=== PATIENT | female | born 1985 | race Caucasian/White ===

== ENCOUNTER → 2018-06-02 12:43 | Outpatient (CLI) | payer OTHER, SELFPAY ==
[2018-06-02 13:35] LABS: Add Manual Diff / Slide Review NO; Basophils Absolute Auto 100 /uL (0-100); Basophils Percent Auto 1.1 % (0-2); Eosinophils Absolute Auto 200 /uL (0-450); Eosinophils Percent Auto 2.3 % (2-4); Hematocrit 41.7 % (36-46); Hemoglobin 14.3 g/dL (12.0-16.0); Lymphocytes Absolute Auto 2300 /uL (1100-4500); Lymphocytes Percent Auto 35.5 % (25-40); Mean Corpuscular HGB Conc 34.2 % (30-36); Mean Corpuscular Volume 93.6 fL (80-100); Monocytes Absolute Auto 300 /uL (0-900); Monocytes Percent Auto 5.3 % (3-14); Neutrophils Absolute Auto 3700 /uL (1500-7000); Neutrophils Percent Auto 55.8 % (50-75); Platelet Count 146 X10^3/uL (150-400); Red Blood Cell Count 4.46 X10^6/uL (4.0-5.2); Red Cell Distribution Width 13.3 % (11.6-14.8); White Blood Cell Count 6.6 X10^3/uL (4.5-11.0)
[2018-06-02 13:55] LABS: HEMOLYSIS < 15 (0-50)
[2018-06-02 13:56] LABS: BUN Creatinine Ratio 27.1 (6-22); Blood Urea Nitrogen 19 mg/dL (7-17); Carbon Dioxide 23 mmol/L (22-32); Chloride 106 mmol/L (98-107); Estimated Glomerular Filt Rate > 60.0 mL/min (>60); Glucose 84 mg/dL (70-100); Sodium 138 mmol/L (137-145)
== END ==
PROVIDERS: PCP Family Medicine; Visit Provider Orthopaedic Surgery Orthopaedic Surgery of the Spine
DX: Z01.818 Encounter for other preprocedural examination (principal)
CPT/HCPCS: 36415; 80048; 85025

== ENCOUNTER 2018-07-14 14:08 | Day surgery (SDC) | payer OTHER, SELFPAY ==
[2018-07-03 08:17] VITALS: BMI 23.8
[2018-07-14] VITALS (11 sets, daily range): BP systolic 96–121; BP diastolic 60–80; PULSE 67–92; RESP 11–17; TEMP 35.8–36.8; O2SAT 97–100; BMI 23.8
[2018-07-14] MEDS: LACTATED RINGERS 1,000 ML 42 ML IV ×2 (14:54→17:32)
--- NOTE | 2018-07-14 15:37 | PM.PREOP ---
Pre-operative Note Interval Note History & Physical reviewed/Exam performed by Physician: Yes Changes to H&P: No
[2018-07-14] MEDS: CLINDAMYCIN 600 MG/50 ML PIGGYBACK 50 MG IV (15:40)
--- NOTE | 2018-07-14 16:36 | SUR.OPER ---
Prone on spine table, head in foam head support, padded chest and pelvic supports, gel pad at knees, lower legs supported by pillows; nipples, genitalia and toes free of pressure, arms secured on foam padded arm boards at <90 degrees abduction. Tape over blanket at thigh secured to table.
--- NOTE | 2018-07-14 16:40 | DI.RAD.S_ITS ---
PROCEDURE: XR THORACIC SPINE 3V INDICATIONS: T7-8 ,HEMILAMINECTOMY TECHNIQUE: 2 views of the thoracic spine were acquired. COMPARISON: [facility] ALAN Angulo, XR THORACIC SPINE 2 VIEWS, 02/20/2018, 15:04. FINDINGS: Surgical probe projected over the posterior spinal elements at the presumed T7-T8 level, however the inferior thoracic spine is not clearly visualized so exact numbering is not possible. IMPRESSION: 1. Surgical probe projecting over the posterior elements at the presumed T7-T8 level. Recommend correlation with real-time exam. Dictated by: Tim ALFONSO Interpreted: Darlene Cheney MD on 07/14/2018 at 17:02 Approved by: Darlene Cheney M.D. on 07/14/2018 at 17:19
[2018-07-14] MEDS: BUPIVACAINE 0.25% W/ EPI 30 ML VIAL INJ (16:43)
[2018-07-14] MEDS: methylPREDNISolone acet DEPO 40 MG/ML VIAL INJ (16:43)
--- NOTE | 2018-07-14 16:59 | PM.OP.1 ---
Operative Date/Time/Diagnoses Date of procedure: 07/14/18 Time of procedure: 16:00 Pre-op diagnosis: 1. T7-8 spinal stenosis 2. T7-8 disc herniation Post-op diagnosis: same Procedure & Clinicians Procedure: 1. T7-8 microdiscectomy with laminectomy 2. Utilization of microsurgical technique and operating microscope Same procedure as scheduled: Yes Indications: Patient has been having chronic mid back pain and worsening thoracic radiculopathy. Patient failed multiple conservative management with worsening pain. Patient has been having difficulty performing activity of daily living. After discussing risks benefits of treatment options, patient elected proceed with surgery. Surgeon: Rober Fried Technician Assistant: Ronna Merchant Click Yes if Unassisted: No Anesthesia Type: General Operative Notes Closure Type: primary Specimen(s): none sent Estimated Blood Loss (mL): 5 Blood products transfused: none Procedure in detail: Patient was seen in the preoperative area. Risks and benefits of the surgery was discussed with the patient. Informed consent was obtained from the patient and placed in the chart. Surgical site was marked. Patient was taken to the operative room. General anesthesia was administered. Prophylactic antibiotic was given to the patient less than 30 min before the incision was made. Patient was placed into a prone position on the Arturo table. Patient's back was then prepped and draped in the sterile fashion. Time-out was performed at this time. Using AP and lateral C-arm imaging the interval between T7-8 was identified and marked on patient's back. A 1 inch incision 1 in from midline was made on the Left side. The fascia was incised in line with skin incision. Globus MARS retractors was placed inside the incision and docked onto the T7 lamina. Using microsurgical technique and operating microscope, a T7 laminotomy was performed using a Kerrison rongeur. Liagamentum flavum was resected at the site of the laminotomy. After the laminotomy and ligamentus resection, the epidural space is significantly more decompressed. After the laminotomy was completed, the area medial lateral superior and inferior to the area of the microdiskectomy was inspected and explored using a micro curette. No other impinging structure was identified. The wound was then irrigated with sterile normal saline. 40 mg Depo-Medrol was placed into the epidural space. The deep fascia was closed with 1-0 Vicryl. The subcutaneous tissue was closed with 2-0 Vicryl. The skin was closed with 4-0 Monocryl. Patient tolerated the procedure well. There were no complications. Patient was transferred recovery room in stable condition. Complications: none Condition: stable Disposition: same day surgery Plan for aftercare: Discharge to home
[2018-07-14] MEDS: fentaNYL 100 MCG/2 ML INJ 50 MCG IV ×2 (17:12→17:18)
[2018-07-14] MEDS: HYDROMORPHONE 2 MG INJ 0.5 MG IV ×4 (17:28→18:42)
[2018-07-14] MEDS: hydrOXYzine 50 MG/ML INJ IM (17:47)
[2018-07-14] MEDS: OXYCODONE/ACETAMINOPHEN 5/325 TABLET 1 TAB PO (18:26)
== END 2018-07-14 19:22 | disposition home or self-care (01) ==
PROVIDERS: PCP Family Medicine; Visit Provider Orthopaedic Surgery Orthopaedic Surgery of the Spine
PROC: (CPT 63003; principal; 2018-07-14 15:45)
DX: M48.04 Spinal stenosis, thoracic region (principal); M51.24 Other intervertebral disc displacement, thoracic region; Z87.891 Personal history of nicotine dependence
CPT/HCPCS: 63003; 72072; 76000; J1030; J1100; J1170; J2250; J2405; J2704; J3010; J3410

== ENCOUNTER → 2019-08-21 17:15 | Outpatient (ROUT) | payer OTHER, SELFPAY | PROVIDERS: PCP Family Medicine; Visit Provider Student in an Organized Health Care Education/Training Program | DX: N61.0 Mastitis without abscess (principal) | CPT/HCPCS: 87070; 87075; 87205 ==

== ENCOUNTER → 2019-08-26 09:56 | Outpatient (CLI) | payer OTHER, SELFPAY ==
--- NOTE | 2019-08-26 | DI.MG.S_ITS ---
BILATERAL DIGITAL DIAGNOSTIC MAMMOGRAM 3D/2D: 08/26/2019 CLINICAL: Baseline exam. Bilateral nipple discharge. No prior exams were available for comparison. The tissue of both breasts is heterogeneously dense. This may lower the sensitivity of mammography. No significant masses, calcifications, or other findings are seen in either breast. IMPRESSION: INCOMPLETE: NEEDS ADDITIONAL IMAGING EVALUATION There is no abnormality seen in either breast to correspond with the area of clinical concern and non-bloody discharge from the nipple, however, ultrasound is recommended. There is no abnormality seen in the right breast to correspond with the area of clinical concern and palpable abnormality in the inferior aspect, however, ultrasound is recommended. The recommended bilateral breast ultrasound is scheduled to immediately follow this examination. This exam was interpreted at Station ID: [id number]. NOTE: For mammograms, a report in lay terms will be sent to the patient. Approximately 15% of breast malignancies will not be visualized mammographically. In the management of a palpable breast mass, a negative mammogram must not discourage biopsy of a clinically suspicious lesion. Electronically Signed By: Elias Cabrera M.D. aty/:08/26/2019 12:02:11 ACR BI-RADS Category 0: Incomplete [id number]
--- NOTE | 2019-08-26 | DI.US.S_ITS ---
ULTRASOUND OF RIGHT BREAST: 08/26/2019 CLINICAL: Nipple discharge md palp lump. Comparison is made to exam dated: 08/26/2019 [facility]. Real-time ultrasound of the right breast was performed. Patino scale images of the real-time examination were reviewed. No significant abnormalities were seen sonographically in the right breast. IMPRESSION: NEGATIVE There is no sonographic evidence of malignancy. There is no abnormality seen in the right breast to correspond with the area of clinical concern and non-bloody discharge from the nipple which likely represents physiological discharge, however, clinical followup is recommended for persistent or worsening symptoms. A screening mammogram is recommended at age 40. This exam was interpreted at Station ID: [id number]. Electronically Signed By: Elias Cabrera M.D. aty/:08/26/2019 12:18:52 Ultrasound BI-RADS: 1 Negative
--- NOTE | 2019-08-26 | DI.US.S_ITS ---
ULTRASOUND OF LEFT BREAST: 08/26/2019 CLINICAL: Nipple discharge. Comparison is made to exam dated: 08/26/2019 [facility]. Real-time ultrasound of the left breast was performed. Patino scale images of the real-time examination were reviewed. No significant abnormalities were seen sonographically in the left breast. IMPRESSION: NEGATIVE There is no sonographic evidence of malignancy. There is no abnormality seen in the left breast to correspond with the area of clinical concern and non-bloody discharge from the nipple in the sub-areolar depth which likely represent physiological discharge, however, recommend clinical follow up for persistent or worsening symptoms or development of any clinically suspicious findings. A screening mammogram is recommended at age 40. This exam was interpreted at Station ID: [id number]. Electronically Signed By: Elias Cabrera M.D. aty/:08/26/2019 12:29:16 Ultrasound BI-RADS: 1 Negative
== END ==
PROVIDERS: PCP Family Medicine; Referring Provider Family Medicine; Visit Provider Family Medicine
DX: R92.8 Other abnormal and inconclusive findings on diagnostic imaging of breast (principal); N64.52 Nipple discharge
CPT/HCPCS: 76642; 77066; G0279

== ENCOUNTER → 2020-04-08 11:10 | Outpatient (CLI) | payer OTHER, SELFPAY ==
[2020-04-08 11:55] LABS: COVID19 -Nasal RAPID POSITIVE (Negative)
== END ==
PROVIDERS: PCP Family Medicine; Referring Provider Student in an Organized Health Care Education/Training Program; Visit Provider Student in an Organized Health Care Education/Training Program
DX: U07.1 COVID-19 (principal)
CPT/HCPCS: 87635

== ENCOUNTER 2020-11-12 09:50 | Emergency (ER) | payer SELFPAY ==
[2020-11-12 09:54] VITALS: BP 137/84; PULSE 82; RESP 14; TEMP 36.7; O2SAT 100; BMI 24.3
--- NOTE | 2020-11-12 10:00 | ED_ITS ---
HPI - Ear Problem General Chief complaint: Ear Stated complaint: EAR PAIN Time Seen by Provider: 11/12/20 09:58 History of Present Illness HPI Narrative: The patient is a 35-year-old female presents with persistent ongoing severe right ear pain. She has left ear pain as well but the right is significantly worse. She initially was seen 10/17/2020 at the walk-in clinic diagnosed with otitis media and otitis externa. At that time she reports swimming in the [place] frequently. Due to severe anaphylactic penicillin allergy she was placed on doxycycline and given ofloxacin drops. She reports some improvement at that time. However she was re-evaluated on 10/27/2020 with loss of hearing in her right ear. She has some intermittent for to being dizzy as well. She was evaluated by ENT on October 28 him she was not happy with and does not feel like they helped her at all. She then got on an airplane free to [place] on October 30. She states she did not get in the water at all she flew home 4 days ago and had intense right ear pain on the airplane. She has since restarted her drops which she has been using as directed. She was seen evaluated and for 3rd time at the walk-in clinic on November 10 and restarted on doxycycline. She states she overall is not feeling any better. She continues to have gross drainage from her right ear. It is severely tender to touch. She takes ibuprofen 800 mg every 8 hours she has been taking Tylenol 1000 mg every 6 hours last dose was at 6:00 a.m. of each of these she continues to have pain. Related Data Home Medications Medication Instructions Recorded Confirmed Multivitamins - 1 tab PO Q DAY #0 02/27/10 11/10/20 (-S) Previous Rx's Medication Instructions Recorded azithromycin 250 mg tablet See Rx Instructions PO .COMPLEX #6 04/08/20 tab ofloxacin 0.3 % ear drops 10 drp OTIC (EAR) BID #10 ml 10/17/20 doxycycline hyclate 100 mg capsule 100 mg PO BID 10 Days #20 cap 11/10/20 ciprofloxacin 0.3 %-dexamethasone 4 drp EAR-BOTH BID 10 Days #7.5 ml 11/12/20 0.1 % ear drops,suspension clarithromycin 500 mg tablet 500 mg PO Q12H #20 tab 11/12/20 levofloxacin 750 mg tablet 750 mg PO DAILY 7 Days tab 11/12/20 ofloxacin 0.3 % ear drops 10 drp EAR-RIGHT DAILY 10 Days #10 11/12/20 ml Allergies Allergy/AdvReac Type Severity Reaction Status Date / Time Penicillins Allergy Severe Anaphylaxis Verified 11/12/20 09:58 latex Allergy Intermediate SWELLING Verified 11/12/20 09:58 hydrocodone Allergy Unknown Verified 11/12/20 09:58 Review of Systems Review of Systems Narrative: GENERAL: Denies chills, fatigue, malaise, fever, sweats, travel HEENT: See HPI RESPIRATORY: Denies dyspnea, cough, wheezing, hemoptysis, sputum. CARDIOVASCULAR: Denies chest pain, palpitations, orthopnea, edema GASTROINTESTINAL: Denies nausea, vomiting, abdominal pain, diarrhea, cons tipation, melena. : Denies dysuria, frequency, incontinence, hematuria, urinary retention, flank pain. MUSCULOSKELETAL: Denies weakness, joint pain, or bony pain SKIN: No rash, no erythema, no pruritus NEUROLOGIC: +dizzy Denies weakness,headache, numbness, change in speech, confusion PSYCHIATRIC: No concerning psychosocial issues. 12 point review of systems is negative except for those stated above and HPI Patient History Medical History (Updated 11/12/20 @ 18:57 by Odalis Brower DO) Bilateral otitis media Bone spur Right otitis externa Thoracic spinal stenosis Social History household members: spouse and children Smoking Status: Current every day smoker alcohol intake: current Smoking Status: Current every day smoker alcohol intake frequency: holidays/special occasions only Exam Initial Vital Signs Initial Vital Signs: Vital Signs Temperature 98.1 F 11/12/20 09:54 Pulse Rate 82 11/12/20 09:54 Respiratory Rate 14 11/12/20 09:54 Blood Pressure 137/84 11/12/20 09:54 Pulse Oximetry 100 11/12/20 09:54 GENERAL: Alert 35-year-old female appears own comfort HEENT: Head atraumatic,EOMI, pupils reactive, face symmetric, moist mucous membranes EARS: Right ear is tender in the periauricular area more anteriorly than posteriorly. Definitely no tenderness over mastoids. External canal shows gross quite drainage. Tympanic membrane difficult to visualize. Left ear mildly tender erythematous canal and fluid behind membrane. Canal is otherwise clear but slightly swollen. No tenderness over mastoid No cervical lymphadenopathy CARDIOVASCULAR: Regular rate and rhythm without murmurs, rubs or gallops. RESPIRATORY: Breath sounds equal bilaterally, no wheezes rales or rhonchi. EXTREMITIES: Normal range of motion, no clubbing or edema. Neurovascularly intact NEUROLOGICAL: Alert and oriented x4.Normal gait and speech. SKIN: Warm, dry, no laceration, no petechiae, no rashes or lesions. Course Orders Ordered: ED Orders 11/12/20 10:16 CT mastoid temporal Stat Discontinued Medications Ketorolac Tromethamine (Ketorolac 30 Mg/Ml Vial) 30 mg IM NOW ONE Stop: 11/12/20 10:17 Last Admin: 11/12/20 10:22 Dose: 30 mg Documented by: RAVI Vital Signs Vital signs: Vital Signs - 8 hr 11/12/20 11:16 Temperature 98.0 F Pulse Rate 62 Respiratory Rate 16 Blood Pressure 122/68 Pulse Oximetry 98 Medical Decision Making Lab Data Labs: Point of Care Testing Test Results Negative Urine Dip Bedside Urine Glucose Negative Bedside Urine Bilirubin - Negative Bedside Urine Ketone - Negative Urine Specific Fontanelle 1.015 Bedside Urine Occult Blood +/- Bedside Urine pH 6.0 Bedside Urine Protein - Negative Bedside Urine Urobilinogen - Negative Bedside Urine Nitrite - Negative Bedside Urine Leukocytes - Negative Esterase Point of care testing: Point of Care Testing Test Results Negative Urine Dip Bedside Urine Glucose Negative Bedside Urine Bilirubin - Negative Bedside Urine Ketone - Negative Urine Specific Fontanelle 1.015 Bedside Urine Occult Blood +/- Bedside Urine pH 6.0 Bedside Urine Protein - Negative Bedside Urine Urobilinogen - Negative Bedside Urine Nitrite - Negative Bedside Urine Leukocytes - Negative Esterase Imaging Data CT mastoids: Radiologist's Impression: PROCEDURE: CT MASTOID TEMPORAL INDICATIONS: severe right pain, infection x 6 weeks COMPARISON: [facility], CT, HEAD WITHOUT CONTRAST, 11/18/2006, 16:17. TECHNIQUE: Noncontrast 0.6 mm thick direct axial and coronal sections acquired through each temporal bone separately. FINDINGS: Image quality: This examination is limited by involuntary motion artifact. RIGHT: External auditory canal: There is thickening of the soft tissues of the right middle ear cavity. Middle ear: [id number] right middle ear cavity fluid is seen. The middle ear ossicles appear intact. There is thickening of the right tympanic membrane. Inner ear: Inner ear is normally formed and appears unremarkable. Facial nerve appears normal throughout is course. Mastoids: Moderate right-sided mastoid air cell fluid can be seen. LEFT: External auditory canal: Thickening is seen involving the soft tissues of the left external auditory canal. Middle ear: Abnormal fluid/soft tissue can be seen involving the left middle ear cavity. There is mild thickening of the left tympanic membrane. The middle ear ossicles appear intact. Inner ear: Inner ear is normally formed and appears unremarkable. Facial nerve appears normal throughout its course. Mastoids: Mild left-sided mastoid air cell fluid can be seen. MISCELLANEOUS: Visualized surrounding bones appear unremarkable. Visualized intracranial structures, including the cerebellopontine angle cisterns, appear normal. IMPRESSION: Abnormal fluid can be seen within the middle ear cavities, right worse than left, which is highly suggestive for infection, particularly given the patient history. Abnormal mastoid air cell fluid can be seen, right worse than left. There is also abnormal thickening of the soft tissues of the external auditory canals, right worse than left. Dictated by: Alfonso Villarreal M.D. on 11/12/2020 at 9:57 Approved by: Alfonso Villarreal M.D. on 11/12/2020 at 10:00 [facility] Narrative Medical decision making narrative: Patient has had on going infection for 6 weeks. She is not tender over her mastoid however the decision to get CT to rule out mastoiditis seems reasonable for persistent infection. The patient does have an anaphylactic reaction to penicillin. Tongue swells lip swells and she has hives. 11:[address] Salvador, who has reviewed patient's chart his partner saw her. At this time he recommends oral Levaquin and Ciprodex drops. He will also re-evaluate in office. The patient overall appears to not feel well but is certainly not septic. She has an obvious otitis media and otitis externa. Will start her on ENT recommended antibiotics. Discharge Plan Departure Patient Disposition: Home Clinical Impression: Right otitis externa, Otitis media Instructions: Middle Ear Infection, DI for Otitis Externa Activity Restrictions/Additional Instructions: *You have been diagnosed with you have full internal and external ear infection *What to do: I think you need longer on stronger antibiotics. CT scan did not show any acute abnormality *Continue to take medications as directed (do not take clarithromycin---it was sent to [facility] cancel that) Levaquin 750 mg once a day for 7 days Ear drops I have prescribed 2 ear drops. I am not sure which 1 is more a ffordable I would prefer if you could take the ciprofloxacin dexamethasone but it may be very expensive. If that is the case then take ofloxacin as you did previous *Follow up with your primary care provider in 2-3 days Follow-up with ENT next week *Return to ER if you should have decreased hearing, increased dizziness, increased pain or any new, worsening or concerning symptoms Prescriptions: New clarithromycin 500 mg tablet 500 mg PO Q12H Qty: 20 RF: 0 ciprofloxacin-dexamethasone 0.3-0.1 % drops,suspension 4 drp EAR-BOTH BID 10 Days Qty: 7.5 RF: 0 ofloxacin 0.3 % drops 10 drp EAR-RIGHT DAILY 10 Days Qty: 10 RF: 0 levofloxacin 750 mg tablet 750 mg PO DAILY 7 Days RF: 0 No Action azithromycin 250 mg tablet See Rx Instructions PO .COMPLEX Qty: 6 RF: 0 ofloxacin 0.3 % drops 10 drp otic (ear) BID Qty: 10 RF: 2 doxycycline hyclate 100 mg capsule 100 mg PO BID 10 Days Qty: 20 RF: 0 Multivitamins - (-S) 1 tab PO Q DAY Qty: 0 RF: 0 Referrals: Carmina Colin MD [Primary Care Provider] -
--- NOTE | 2020-11-12 10:16 | DI.CT.S_ITS ---
PROCEDURE: CT MASTOID TEMPORAL INDICATIONS: severe right pain, infection x 6 weeks COMPARISON: [facility], CT, HEAD WITHOUT CONTRAST, 11/18/2006, 16:17. TECHNIQUE: Noncontrast 0.6 mm thick direct axial and coronal sections acquired through each temporal bone separately. FINDINGS: Image quality: This examination is limited by involuntary motion artifact. RIGHT: External auditory canal: There is thickening of the soft tissues of the right middle ear cavity. Middle ear: [id number] right middle ear cavity fluid is seen. The middle ear ossicles appear intact. There is thickening of the right tympanic membrane. Inner ear: Inner ear is normally formed and appears unremarkable. Facial nerve appears normal throughout is course. Mastoids: Moderate right-sided mastoid air cell fluid can be seen. LEFT: External auditory canal: Thickening is seen involving the soft tissues of the left external auditory canal. Middle ear: Abnormal fluid/soft tissue can be seen involving the left middle ear cavity. There is mild thickening of the left tympanic membrane. The middle ear ossicles appear intact. Inner ear: Inner ear is normally formed and appears unremarkable. Facial nerve appears normal throughout its course. Mastoids: Mild left-sided mastoid air cell fluid can be seen. MISCELLANEOUS: Visualized surrounding bones appear unremarkable. Visualized intracranial structures, including the cerebellopontine angle cisterns, appear normal. IMPRESSION: Abnormal fluid can be seen within the middle ear cavities, right worse than left, which is highly suggestive for infection, particularly given the patient history. Abnormal mastoid air cell fluid can be seen, right worse than left. There is also abnormal thickening of the soft tissues of the external auditory canals, right worse than left. Dictated by: Alfonso Villarreal M.D. on 11/12/2020 at 9:57 Approved by: Alfonso Villarreal M.D. on 11/12/2020 at 10:00
[2020-11-12] MEDS: KETOROLAC 30 MG/ML VIAL IM (10:22)
[2020-11-12 11:16] VITALS: BP 122/68; PULSE 62; RESP 16; TEMP 36.7; O2SAT 98
== END 2020-11-12 11:40 | disposition home or self-care (01) ==
PROVIDERS: Emergency Provider Emergency Medicine; PCP Family Medicine
DX: H60.91 Unspecified otitis externa, right ear (principal); H66.91 Otitis media, unspecified, right ear
CPT/HCPCS: 70480; 81003; 81025; 96372; 99283; 99284; J1885

== ENCOUNTER → 2021-05-09 09:55 | Outpatient (CLI) | payer SELFPAY ==
[2021-05-09 11:40] LABS: Basophils Absolute Auto 0 /uL (0-100); Basophils Percent Auto 0.9 % (0-2); Eosinophils Absolute Auto 100 /uL (0-450); Eosinophils Percent Auto 1.7 % (2-4); Hematocrit 42.9 % (36-46); Hemoglobin 14.6 g/dL (12.0-16.0); Lymphocytes Absolute Auto 1700 /uL (1100-4500); Lymphocytes Percent Auto 39.7 % (25-40); Mean Corpuscular Hemoglobin 34.2 PG (26-34); Mean Corpuscular Volume 100.5 fL (80-100); Monocytes Absolute Auto 300 /uL (0-900); Monocytes Percent Auto 6.4 % (3-14); Neutrophils Absolute Auto 2200 /uL (1500-7000); Neutrophils Percent Auto 51.3 % (50-75); Platelet Count 167 X10^3/uL (150-400); Red Blood Cell Count 4.27 X10^6/uL (4.0-5.2); Red Cell Distribution Width 13.7 % (11.6-14.8); White Blood Cell Count 4.3 X10^3/uL (4.5-11.0)
[2021-05-09 11:56] LABS: Erythrocyte Sedimentation Rate 4 MM/HR (0-20)
[2021-05-09 11:57] LABS: Add Manual Diff / Slide Review SLIDE REVIEW
[2021-05-09 12:09] LABS: Alanine Aminotransferase 23 IU/L (<35); Albumin 4.5 g/dL (3.5-5.0); Albumin Globulin Ratio 1.7 (1.0-2.8); Alkaline Phosphatase 67 U/L (38-126); Aspartate Aminotransferase 28 IU/L (14-36); BUN Creatinine Ratio 18.9 (6-22); Bilirubin Total 0.4 mg/dL (0.2-1.3); Bilirubin Unconjugated 0.4 mg/dL (0.0-1.1); Blood Urea Nitrogen 10 mg/dL (7-17); C-Reactive Protein Quant < 0.5 mg/dL (<1.0); Calcium 9.1 mg/dL (8.4-10.2); Carbon Dioxide 27 mmol/L (22-32); Chloride 106 mmol/L (98-107); Estimated Glomerular Filt Rate > 60.0 mL/min (>60); Globulin 2.7 g/dL (1.7-4.1); Glucose 90 mg/dL (70-100); HEMOLYSIS < 15 (0-50); Potassium 3.9 mmol/L (3.4-5.1); Sodium 139 mmol/L (137-145); Total Protein 7.2 g/dL (6.3-8.2)
[2021-05-09 12:16] LABS: Platelet Morphology Comment GIANT PLATELETS NOTE
[2021-05-09 12:17] LABS: Vitamin D 25 Hydroxy (D3) 56.9 ng/mL (30.0-100.0)
[2021-05-09 12:18] LABS: Rheumatoid Factor < 8.6 IU/mL (<12.0)
[2021-05-10 19:33] LABS: SS A Ro Sjogrens Antibody < 0.2 AI (0.0-0.9); SS B La Sjogrens Antibody < 0.2 AI (0.0-0.9)
[2021-05-11 17:12] LABS: ANA Screen, IFA Negative (.)
[2021-05-17 18:17] LABS: HLA B27 Negative (.)
== END ==
PROVIDERS: PCP Family Medicine; Referring Provider Physical Medicine & Rehabilitation; Visit Provider Physical Medicine & Rehabilitation
DX: M54.12 Radiculopathy, cervical region (principal)
CPT/HCPCS: 36415; 80053; 80076; 81374; 82306; 85025; 85651; 86038; 86140; 86235; 86430

== ENCOUNTER 2021-10-11 17:13 | Emergency (ER) | payer SELFPAY ==
[2021-10-11 17:20] VITALS: BP 129/83; PULSE 94; RESP 22; TEMP 36.6; O2SAT 97
[2021-10-11 17:56] LABS: Add Manual Diff / Slide Review NO; Basophils Absolute Auto 0 /uL (0-100); Basophils Percent Auto 0.7 % (0-2); Eosinophils Absolute Auto 100 /uL (0-450); Eosinophils Percent Auto 1.1 % (2-4); Hematocrit 45.4 % (36-46); Lymphocytes Absolute Auto 1700 /uL (1100-4500); Lymphocytes Percent Auto 25.5 % (25-40); Mean Corpuscular HGB Conc 35.1 % (30-36); Mean Corpuscular Hemoglobin 35.6 PG (26-34); Mean Corpuscular Volume 101.2 fL (80-100); Monocytes Absolute Auto 500 /uL (0-900); Neutrophils Absolute Auto 4400 /uL (1500-7000); Neutrophils Percent Auto 65.7 % (50-75); Platelet Count 154 X10^3/uL (150-400); Red Blood Cell Count 4.49 X10^6/uL (4.0-5.2); Red Cell Distribution Width 14.3 % (11.6-14.8); White Blood Cell Count 6.7 X10^3/uL (4.5-11.0)
[2021-10-11 18:07] LABS: Alanine Aminotransferase 84 IU/L (<35); Albumin 4.7 g/dL (3.5-5.0); Albumin Globulin Ratio 1.6 (1.0-2.8); Alkaline Phosphatase 76 U/L (38-126); Aspartate Aminotransferase 96 IU/L (14-36); BUN Creatinine Ratio 27.9 (6-22); Bilirubin Total 0.6 mg/dL (0.2-1.3); Blood Urea Nitrogen 12 mg/dL (7-17); Calcium 9.8 mg/dL (8.4-10.2); Carbon Dioxide 28 mmol/L (22-32); Chloride 105 mmol/L (98-107); Estimated Glomerular Filt Rate > 60 mL/min (>60); Globulin 2.9 g/dL (1.7-4.1); Glucose 100 mg/dL (70-100); HEMOLYSIS < 15 (0-50); Potassium 3.9 mmol/L (3.4-5.1); Sodium 142 mmol/L (137-145); Total Protein 7.6 g/dL (6.3-8.2)
[2021-10-11] MEDS: hydrOXYzine pamoate 25 MG CAPSULE PO (18:09)
[2021-10-11] MEDS: PANTOPRAZOLE 40 MG VIAL IV (18:09)
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
[2021-10-11] MEDS: MAG HYDROX/ALUMINUM/SIMETH SUS 20 ML, LIDOCAINE VISCOUS 2% 15 ML PO (19:58)
[2021-10-11] MEDS: LORazepam 0.5 MG TABLET 1 MG PO (20:00)
[2021-10-11 20:16] VITALS: BP 139/88; PULSE 73; RESP 18; O2SAT 97
== END 2021-10-11 20:11 | disposition home or self-care (01) ==
PROVIDERS: Emergency Medicine; Emergency Provider Nurse Practitioner Critical Care Medicine; PCP Family Medicine
DX: R10.13 Epigastric pain (principal); F10.10 Alcohol abuse, uncomplicated; K29.21 Alcoholic gastritis with bleeding; R74.8 Abnormal levels of other serum enzymes
CPT/HCPCS: 36415; 80053; 81003; 81025; 85025; 96374; 99284; C9113

== ENCOUNTER 2021-11-01 13:31 | Emergency (ER) | payer SELFPAY ==
[2021-11-01 13:42] VITALS: BP 128/92; PULSE 92; RESP 15; TEMP 36.9; O2SAT 98; BMI 23.5
== END 2021-11-01 15:05 | disposition left against medical advice (07) ==
PROVIDERS: Emergency Provider Emergency Medicine; PCP Family Medicine
CPT/HCPCS: 99282

== ENCOUNTER → 2022-01-18 12:55 | Outpatient (CLI) | payer SELFPAY ==
--- NOTE | 2022-01-18 13:13 | DI.RAD.S_ITS ---
PROCEDURE: XR RIBS RT MIN 3V W CXR 1V INDICATIONS: Right-sided rib pain TECHNIQUE: 2 views of the right ribs were acquired, along with a single view chest. COMPARISON: None. FINDINGS: Surgical changes and devices: None. Bones and chest wall: No acute displaced rib fracture. No suspicious bony lesions. Overlying soft tissues appear unremarkable. Lungs and pleura: No pleural effusions or pneumothorax. Lungs appear clear. Mediastinum: Mediastinal contours appear normal. Heart size is normal. IMPRESSION: No acute displaced rib fracture. No pneumothorax. Dictated by: Yandel Harris M.D. on 01/18/2022 at 14:53 Approved by: Yandel Harris M.D. on 01/18/2022 at 14:55
== END ==
PROVIDERS: PCP Family Medicine; Referring Provider Nurse Practitioner Family; Visit Provider Nurse Practitioner Family
DX: R07.81 Pleurodynia (principal)
CPT/HCPCS: 71101

== ENCOUNTER → 2022-01-24 15:09 | Outpatient (CLI) | payer SELFPAY ==
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
== END ==
PROVIDERS: PCP Family Medicine; Referring Provider Chiropractor; Visit Provider Chiropractor
DX: M54.6 Pain in thoracic spine (principal)
CPT/HCPCS: 72110

== ENCOUNTER 2024-05-15 10:38 | Emergency (ER) | payer OTHER, SELFPAY ==
[2024-05-15 10:49] VITALS: BP 147/98; PULSE 122; RESP 24; TEMP 36.9; O2SAT 98
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
--- NOTE | 2024-05-15 11:04 | PC.NURSE ---
PT to Xray via WC. Pt crying and c/o right shoulder pain. Has pain to left hand.
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
--- NOTE | 2024-05-15 11:18 | DI.RAD.S_ITS ---
PROCEDURE: XR SCAPULA RT INDICATIONS: pain fall TECHNIQUE: 2 views of the scapula were acquired. COMPARISON: None. FINDINGS: Bones: No fractures or dislocations. No suspicious bony lesions. Visualized ribs appear intact. Soft tissues: Overlying soft tissues appear normal. IMPRESSION: No acute bony abnormality. Dictated by: Marlo Haines M.D. on 05/15/2024 at 11:35 Approved by: Marlo Haines M.D. on 05/15/2024 at 11:36
[2024-05-15] MEDS: ACETAMINOPHEN 325 MG TABLET 975 MG PO (11:22)
[2024-05-15] MEDS: IBUPROFEN 400 MG TABLET 800 MG PO (11:23)
[2024-05-15 11:54] VITALS: BP 134/77; PULSE 66; RESP 16; TEMP 36.9; O2SAT 99
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
== END 2024-05-15 12:43 | disposition home or self-care (01) ==
PROVIDERS: Emergency Provider Emergency Medicine; PCP Family Medicine
DX: S46.911A Strain of unspecified muscle, fascia and tendon at shoulder and upper arm level, right arm, initial encounter (principal); S83.92XA Sprain of unspecified site of left knee, initial encounter; M79.642 Pain in left hand; M25.522 Pain in left elbow; M25.562 Pain in left knee; F17.210 Nicotine dependence, cigarettes, uncomplicated; Y04.2XXA Assault by strike against or bumped into by another person, initial encounter
CPT/HCPCS: 73010; 73030; 73080; 73130; 73560; 99283; 99284

== ENCOUNTER 2024-10-23 14:55 | Emergency (ER) | payer OTHER, SELFPAY ==
[2024-10-23] VITALS (16 sets, daily range): BP systolic 120–157; BP diastolic 60–102; PULSE 87–119; RESP 17–26; TEMP 36.9; O2SAT 93–98; BMI 21.1
[2024-10-23 15:16] LABS: Add Manual Diff / Slide Review NO; Hematocrit 40.5 % (36-46); Hemoglobin 13.8 g/dL (12.0-16.0); Lymphocytes Absolute Auto 1600 /uL (1100-4500); Mean Corpuscular HGB Conc 34.2 % (30-36); Mean Corpuscular Hemoglobin 35.7 PG (26-34); Mean Corpuscular Volume 104.6 fL (80-100); Platelet Count 112 X10^3/uL (150-400)
[2024-10-23] MEDS: HYDROMORPHONE 1 MG INJ IV ×2 (15:22→17:31)
[2024-10-23 15:24] LABS: Alanine Aminotransferase 135 IU/L (<35); Albumin 4.2 g/dL (3.5-5.0); Albumin Globulin Ratio 1.4 (1.0-2.8); Alkaline Phosphatase 156 U/L (38-126); Blood Urea Nitrogen 3 mg/dL (7-17); Calcium 8.2 mg/dL (8.4-10.2); Carbon Dioxide 24 mmol/L (22-32); Chloride 99 mmol/L (98-107); Estimated Glomerular Filt Rate > 60 mL/min (>60); Globulin 3.0 g/dL (1.7-4.1); Glucose 84 mg/dL (70-99); HEMOLYSIS < 15 (0-50); Lipase 147 U/L (23-300); Potassium 2.9 mmol/L (3.4-5.1); Sodium 138 mmol/L (137-145); Total Protein 7.2 g/dL (6.3-8.2)
[2024-10-23 15:35] LABS: Ethanol (ETOH) 283 mg/dL (<10)
--- NOTE | 2024-10-23 15:51 | DI.CT.S_ITS ---
PROCEDURE: CT ABDOMEN PELVIS W CON INDICATIONS: RLQ/flank pain, last 24 hours TECHNIQUE: After the administration of intravenous contrast, axial sections acquired from the lung bases to the pubic symphysis. Coronal and sagittal reformats were performed. For radiation dose reduction, the following was used: automated exposure control, adjustment of mA and/or kV according to patient size. COMPARISON: None. FINDINGS: Image quality: Diagnostic Lower chest: Unremarkable lung bases. Normal heart size. Liver: Hepatomegaly at 21 cm. Hepatic steatosis, at least moderate Gallbladder and biliary system: Unremarkable, nondilated. Pancreas: No ductal dilation Spleen: Nonenlarged. There are granulomatous calcifications Adrenals: No discrete nodules Kidneys: Multiple 6-8 mm calculi in the right kidney, nonobstructing. Moderate right hydronephrosis is seen, with an obstructing conglomerate of stones in aggregate measuring 1.4 x 0.7 cm in the right distal ureter. No solid renal mass or left hydronephrosis. Delayed right nephrogram Vessels and lymph nodes: The main portal vein is patent. No abdominal aortic aneurysm. There are no enlarged lymph nodes by size criteria. Bowel and peritoneum: No small bowel obstruction. No pathologic ascites. The appendix is nondilated Body wall: Tiny fat containing umbilical hernia Pelvis: Bladder is unremarkable. Reproductive organs are unremarkable on limited CT evaluation. Bones: There are degenerative osseous findings. IMPRESSION: Moderate right hydronephrosis with delayed nephrogram, indicating obstructive uropathy. 1.4 x 0.7 cm conglomerate of obstructing stones is seen in the right distal ureter. Nonobstructing right calyceal calculi also present. Hepatomegaly and steatosis. Nondilated appendix. Other findings above. Dictated by: Anuj Cintron M.D. on 10/23/2024 at 15:31 Approved by: Anuj Cintron M.D. on 10/23/2024 at 15:39
--- NOTE | 2024-10-23 15:56 | ED_ITS ---
HPI - Abdominal Pain General Chief Complaint: Abdominal Pain Stated Complaint: RLQ px, B/L flank px Time Seen by Provider: 10/23/24 15:17 Source: patient, EMS, RN notes reviewed and old records reviewed Mode of arrival: EMS Limitations: no limitations History of Present Illness HPI narrative: 39-year-old female history of ETOH abuse, chronic hypokalemia presents with complaint of right lower quadrant and flank pain that started in the last 24 hours. Patient states noticed it 1st in the right lower quadrant than noticed it is a little bit more in the flank. No fevers. She was had some nausea or vomiting. States pain has been rapidly worsening does note some waxing and waning intensity. Has had kidney stones in the past states he thinks it is similar but not for sure. She denies any issues such as diarrhea, constipation or black or bloody stools. Denies any dysuria urgency or frequency. No new vaginal bleeding or discharge. Patient states she was taking oral potassium daily. States no prior surgeries. Does use tobacco daily states she drinks about a 12 pack of alcohol daily, denies marijuana or other recreational drugs. She was accompanied by her boyfriend today. Related Data Home Medications ?Medication ?Instructions ?Recorded ?Confirmed Multivitamins - 1 tab PO Q DAY ##0 0 02/04/22 (-S) Previous Rx's ?Medication ?Instructions ?Recorded azithromycin 250 mg tablet See Rx Instructions PO .COM PLEX 04/08/20 Sinus infection/Cillin allergic #6 tabs ofloxacin 0.3 % ear drops 10 drp otic (ear) BID #10 mL 10/17/20 clarithromycin 500 mg tablet 500 mg PO Q12H #20 tabs 0 11/12/20 lorazepam 1 mg tablet 1 mg PO DAILY PRN alcohol withdrawal #14 tabs pantoprazole 40 mg tablet,delayed 40 mg PO QAM GI ulce r #90 tabs 10/11/21 release (Protonix) lidocaine 5 % topical patch 1 patch topical DAILY #15 ea 01/19/22 (Lidoderm) methocarbamol 500 mg tablet 500 mg PO BEDTIME PRN musc le spasm 01/19/22 #20 tabs methocarbamol 750 mg tablet 750 mg PO TID PRN pain/spa sms #20 01/21/22 tabs oxycodone-acetaminophen 5 mg-325 1 tab PO Q8H PRN pain #10 tabs 10/22 mg tablet (Percocet) Allergies Allergy/AdvReac Type Severity Reaction Status Date / Time Penicillins Allergy Severe Anaphylaxis Verified 10/23/24 15:07 latex Allergy Intermediate SWELLING Verified 10/23/24 15:07 hydrocodone Allergy Unknown Verified 10/23/24 15:07 zolpidem (From Ambien) Allergy Verified 10/23/24 15:07 Review of Systems Review of Systems ROS Unobtainable: All systems reviewed & are unremarkable except as noted in HPI and below Patient History Medical History Muscle spasm Costochondritis Bilateral otitis media Right otitis externa Thoracic spinal stenosis Bone spur Social History household members: spouse and children Smoking Status: Current some day smoker alcohol intake: current Smoking Status: Current some day smoker tobacco type: e-cigarettes alcohol intake frequency: 3 or more drinks per day Alcohol type: other Exam Narrative Exam Narrative: GENERAL: Alert and oriented x three, female in moderate distress HEENT: Head normocephalic, atraumatic, EOMI, pupils reactive, face symmetric, moist mucous membranes NECK: Supple, full range of motion CARDIOVASCULAR: Regular rate and rhythm without murmurs, rubs or gallops. RESPIRATORY: Breath sounds equal bilaterally, no wheezes rales or rhonchi. ABDOMEN: Soft, positive for right lower quadrant tenderness. Normoactive bowel sounds all 4 quadrants. No guarding or rebound, rigidity, no mass, positive for hepatomegaly. : Mild right flank CVA tenderness, no left flank tenderness. EXTREMITIES: Normal range of motion, no clubbing or edema. Neurovascularly intact NEUROLOGICAL: Cranial nerves II through XII grossly intact. Moving all extremities SKIN: Warm, dry, no petechiae, no rashes or lesions. Initial Vital Signs Initial Vital Signs: Vital Signs Temperature 98.4 F 10/23/24 15:07 Pulse Rate 112 H 10/23/24 15:07 Respiratory Rate 20 10/23/24 15:07 Blood Pressure 120/78 10/23/24 15:07 Pulse Oximetry 97 10/23/24 15:07 Oxygen Delivery Method Room Air 10/23/24 15:07 Course Orders Ordered: Discontinued Medications Diphenhydramine HCl (Diphenhydramine 50 Mg/Ml Vial) 25 mg IV NOW ONE Stop: 10/23/24 18:26 Last Admin: 10/23/24 18:31 Dose: 25 mg Documented By: ADEN Hydromorphone HCl (Hydromorphone 1 Mg Inj) 1 mg IV NOW ONE Stop: 10/23/24 15:18 Last Admin: 10/23/24 15:22 Dose: 1 mg Documented By: ADEN Hydromorphone HCl (Hydromorphone 1 Mg Inj) 1 mg IV NOW ONE Stop: 10/23/24 17:25 Last Admin: 10/23/24 17:31 Dose: 1 mg Documented By: ADEN Hydromorphone HCl (Hydromorphone Hcl 0.5 Mg/0.5 Ml Syringe) 0.5 mg IV NOW ONE Stop: 10/23/24 19:29 Last Admin: 10/23/24 19:38 Dose: 0.5 mg Documented By: ALESSANDRA Sodium Chloride (Normal Saline 0.9%) 1,000 mls @ 1,000 mls/hr IV BOLUS ONE Stop: 10/23/24 16:55 Last Infusion: 10/23/24 18:21 Dose: Infused Documented By: Admin: 10/23/24 16:23 Dose: 1,000 mls/hr Documented By: ADEN Levofloxacin (Levaquin) 750 mg in 150 mls @ 100 mls/hr IV NOW ONE Stop: 10/23/24 18:17 Last Infusion: 10/23/24 18:21 Dose: Infused Documented By: Admin: 10/23/24 17:00 Dose: 100 mls/hr Documented By: ADEN POTASSIUM CHLORIDE IN WATER (Potassium Cl 10 Meq/100 Ml Roselyn) 10 meq in 100 mls @ 100 mls/hr IV Q1H ERENDIRA Stop: 10/23/24 21:29 Last Infusion: 10/23/24 20:00 Dose: 100 mls/hr Documented By: Admin: 10/23/24 19:38 Dose: 100 mls/hr Documented By: Infusion: 10/23/24 19:25 Dose: Infused Documented By: Admin: 10/23/24 18:25 Dose: 100 mls/hr Documented By: ADEN Sodium Chloride (Normal Saline 0.9%) 1,837.05 mls @ 612.35 mls/hr 30 ml/kg infuse over 3 hr (1837.05 ml) IV NOW ONE Stop: 10/23/24 20:20 Last Infusion: 10/23/24 20:18 Dose: Infused Documented By: Admin: 10/23/24 17:34 Dose: 612.35 mls/hr Documented By: ADEN Ketorolac Tromethamine (Ketorolac 30 Mg/Ml Vial) 15 mg IV NOW ONE Stop: 10/23/24 16:32 Last Admin: 10/23/24 16:34 Dose: 15 mg Documented By: ADEN Methylprednisolone (Methylprednisolone 125 Mg/2 Ml Vial) 125 mg IV NOW ONE Stop: 10/23/24 18:26 Last Admin: 10/23/24 18:32 Dose: 125 mg Documented By: ADEN Ondansetron HCl (Ondansetron 4 Mg/2 Ml Inj) 4 mg IV NOW PRN PRN Reason: Nausea And Vomiting Last Admin: 10/23/24 19:52 Dose: 4 mg Documented By: ALESSANDRA Ondansetron HCl (Ondansetron 4 Mg Odt) 4 mg PO NOW PRN PRN Reason: Nausea And Vomiting Potassium Chloride (Potassium Chloride 20 Meq Tab) 40 meq PO NOW ONE Stop: 10/23/24 15:57 Last Admin: 10/23/24 16:23 Dose: 40 meq Documented By: ADEN Vital Signs Vital signs: Vital Signs - 8 hr 10/23/24 15:07 10/23/24 15:18 10/23/24 15:30 Temperature 98.4 F Pulse Rate 112 H 113 H 98 H Respiratory Rate 20 26 H Blood Pressure 120/78 Pulse Oximetry 97 98 95 Oxygen Delivery Method Room Air 10/23/24 15:30 10/23/24 16:00 10/23/24 16:30 Temperature Pulse Rate 99 H 87 Respiratory Rate 17 17 Blood Pressure 131/90 Pulse Oximetry 95 Oxygen Delivery Method 10/23/24 16:30 10/23/24 17:00 10/23/24 17:01 Temperature Pulse Rate 96 H Respiratory Rate 22 Blood Pressure 123/73 157/89 H Pulse Oximetry 96 Oxygen Delivery Method 10/23/24 17:01 Temperature Pulse Rate 93 H Respiratory Rate 24 Blood Pressure Pulse Oximetry 97 Oxygen Delivery Method MDM - Abdominal Pain Lab Data 10/23/24 15:04 10/23/24 15:04 Labs: Lab Results 10/23/24 10/23/24 Range/Units 15:04 15:58 WBC 5.1 (4.5-11.0) X10^3/uL RBC 3.87 L (4.0-5.2) X10^6/uL Hgb 13.8 (12.0-16.0) g/dL Hct 40.5 (36-46) % MCV 104.6 H (80-100) fL MCH 35.7 H (26-34) PG MCHC 34.2 (30-36) % RDW 15.9 H (11.6-14.8) % Plt Count 112 L (150-400) X10^3/uL Neut % (Auto) 60.5 (50-75) % Lymph % (Auto) 31.2 (25-40) % Miner % (Auto) 6.9 (3-14) % Eos % (Auto) 0.2 L (2-4) % Baso % (Auto) 1.2 (0-2) % Neut # (Auto) 3100 (2290-8685) /uL Lymph # (Auto) 1600 (9076-6476) /uL Miner # (Auto) 300 (0-900) /uL Eos # (Auto) 0 (0-450) /uL Baso # (Auto) 100 (0-100) /uL Sodium 138 (137-145) mmol/L Potassium 2.9 L (3.4-5.1) mmol/L Chloride 99 (98-107) mmol/L Carbon Dioxide 24 (22-32) mmol/L BUN 3 L (7-17) mg/dL Creatinine 0.51 L (0.52-1.04) mg/dL Estimated GFR > 60 (>60) mL/min BUN/Creatinine Ratio 5.9 L (6-22) Glucose 84 (70-99) mg/dL Calcium 8.2 L (8.4-10.2) mg/dL Total Bilirubin 0.9 (0.2-1.3) mg/dL AST 319 H (14-36) IU/L ALT 135 H (<35) IU/L Alkaline Phosphatase 156 H (38-126) U/L Total Protein 7.2 (6.3-8.2) g/dL Albumin 4.2 (3.5-5.0) g/dL Globulin 3.0 (1.7-4.1) g/dL Albumin/Globulin Ratio 1.4 (1.0-2.8) Lipase 147 (23-300) U/L Urine RBC 1-5/hpf (0-5/HPF) Urine WBC 1-5/hpf (0-5/HPF) Ur Squamous Epith Cells 0-1 /hpf (0-5/HPF) Urine Bacteria Many (>30) H (None) Ur Culture Indicated? Cult not indicated Vol Urine Centrifuged 10ml (spun) Ethyl Alcohol 283 H (<10) mg/dL Point of care testing: Point of Care Testing Test Results Negative Urine Dip Bedside Urine Glucose Negative Bedside Urine Bilirubin - Negative Bedside Urine Ketone - Negative Urine Specific [place] 1.005 Bedside Urine Occult Blood +++ Bedside Urine pH 6.0 Bedside Urine Protein - Negative Bedside Urine Urobilinogen - Negative Bedside Urine Nitrite - Negative Bedside Urine Leukocytes ++ 125 Esterase ECG Data Attestation: I personally reviewed and interpreted this ECG as follows: Prior ECG tracings: not available for review Interpretation: Sinus rhythm rate of 81 [place] 150 QRS of 90 QTC 497, no acute ST changes appreciated. MDM Narrative Medical decision making narrative: 39-year-old female worsening right lower quadrant tenderness that she describes as gradual onset but has some flank tenderness. She was tachycardic but afebrile otherwise well-appearing does note a history of alcohol use. Labs show normal white count, hemoglobin of 13 platelets of 112, chemistries show hypokalemia patient states she takes potassium supplement is 2.9 today BUN 3 creatinine is 0.51 electrolytes are otherwise appropriate calcium is 8.2. Bilirubin is normal AST is 319 with a ALT of 135 and alk-phos of 156 and a lipase of 147. Patient was nontender in her right upper quadrant. Urine sample negative for . Point of care urine positive for leukocytes, negative for nitrates. 1-5 RBCs 1-5 white cells 1 squamous many bacteria. EKG shows sinus rhythm rate [address] abdomen pelvis obtained to evaluate for kidney stone versus appendicitis versus pyelonephritis versus other. CT abdomen pelvis shows moderate right hydro with delayed nephrogram indicating obstructive uropathy 1.4 x 0.7 cm conglomerate of obstructing stone seen in the right distal ureter nonobstructing right calyceal calculi also present, hepatomegaly and steatosis nondilated appendix. Patient received fentanyl EN route with EMS was minimally helpful received a dose of Dilaudid, fluids, potassium supplementation. Patient additional dose of Toradol somewhat helpful patient is still quite uncomfortable. Patient received fluids, IV antibiotics and K rider potassium. Some additional doses of pain medication. Spoke with urology at [facility] and Dr. Ashlee Michel. Recommends transfer for stent or percutaneous nephrostomy based on patient's obstructive changes and urinalysis which does not appear infected patient does not currently appear septic but it was high-risk. She was also have difficulty with pain management. You would typically does not have beds we will call around to other facilities but she states that can chat with the administrative coordinator and they would be happy to see her. Spoke with urology, Dr. Peterson at 1825 @ [facility], willing to see patient discussed pain has not been well controlled here concern for infection in the urine, no acute kidney injury appears nontoxic and not septic but has been tachycardic. Spoke with [place] hospitalist, Curt Roy @ [facility] who accepts for transfer plan for step-down unit patient has a potential for withdrawal. Did note that after she received noted some itching and irritation so was given a dose of Benadryl and Solu-Medrol. But no other rash or skin changes or antibiotic reaction appreciated. Coordinator will call back with bed assignment. Patient signed out to Dr. Feliciano, while awaiting transfer. Did discuss patient has potential for alcohol withdrawal no acute changes or currently as well as potential development of sepsis. Discharge Plan Departure [facility]: [facility] Clinical Impression: Hypokalemia, Right ureteral calculus, UTI (urinary tract infection) Prescriptions: No Action azithromycin 250 mg tablet See Rx Instructions PO .COMPLEX Qty: 6 0RF Rx Instructions: take 500 mg today (day 1), then 250 mg for 4 days (days 2-5) PO ofloxacin 0.3 % drops 10 drp otic (ear) BID Qty: 10 2RF methocarbamol 750 mg tablet 750 mg PO TID PRN (Reason: pain/spasms) Qty: 20 0RF oxycodone-acetaminophen [Percocet] 5-325 mg tablet 1 tab PO Q8H PRN (Reason: pain) Qty: 10 0RF Multivitamins - (-S) 1 tab PO Q DAY Qty: 0 methocarbamol 500 mg tablet 500 mg PO BEDTIME PRN (Reason: muscle spasm) Qty: 20 0RF lidocaine [Lidoderm] 5 % adhesive patch,medicated 1 patch topical DAILY Qty: 15 0RF Rx Instructions: leave on most painful area for up to 12 hrs clarithromycin 500 mg tablet 500 mg PO Q12H Qty: 20 0RF lorazepam 1 mg tablet 1 mg PO DAILY PRN (Reason: alcohol withdrawal) Qty: 14 0RF Rx Instructions: Please take half to 1 mg as needed for symptoms of alcohol withdrawal or extreme anxiety. pantoprazole [Protonix] 40 mg tablet,delayed release (DR/EC) 40 mg PO QAM Qty: 90 0RF Rx Instructions: Take each morning before any food or water. Referrals: Carmina Colin MD [Primary Care Provider, Family Practice]
--- NOTE | 2024-10-23 16:10 | EKG_ITS ---
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
[2024-10-23] MEDS: POTASSIUM CHLORIDE 20 MEQ TAB 40 MEQ PO (16:23)
[2024-10-23] MEDS: SODIUM CHLORIDE 0.9% 1,000 ML 1000 ML IV (16:23)
[2024-10-23] MEDS: KETOROLAC 30 MG/ML VIAL 15 MG IV (16:34)
[2024-10-23 16:35] LABS: Culture Indicated Urine Cult Not Indicated
[2024-10-23] MEDS: SODIUM CHLORIDE 0.9% 1,837.05 ML 612.35 ML IV (17:34)
[2024-10-23] MEDS: POTASSIUM CHLORIDE IN WATER 10 MEQ/100 ML PIGGYBACK 100 MEQ IV ×2 (18:25→19:38)
[2024-10-23] MEDS: diphenhydrAMINE 50 MG/ML VIAL 25 MG IV (18:31)
[2024-10-23] MEDS: ONDANSETRON 4 MG/2 ML INJ IV (19:52)
--- NOTE | 2024-10-23 20:17 | PC.NURSE ---
Attempted to call report to [facility] 2013, spend several minute on the phone with it ringing, nobody picked up for report.
== END 2024-10-23 20:00 | disposition short-term general hospital (02) ==
PROVIDERS: Emergency Provider Emergency Medicine; PCP Family Medicine
DX: E87.6 Hypokalemia (principal); N20.1 Calculus of ureter; N39.0 Urinary tract infection, site not specified; R00.0 Tachycardia, unspecified
CPT/HCPCS: 74177; 80053; 80320; 81003; 81015; 81025; 83690; 85025; 87077; 87086; 87186; 93005; 93010; 96365; 96367; 96375; 96376; 99284; J1171; J1200; J1885; J1956; J2405; J2919; Q9967

== ENCOUNTER 2024-11-02 15:22 | Emergency (ER) | payer OTHER, SELFPAY ==
[2024-11-02 15:26] VITALS: BP 134/91; PULSE 110; RESP 20; TEMP 37; O2SAT 98; BMI 22.7
[2024-11-02 15:42] LABS: Add Manual Diff / Slide Review NO; Hematocrit 38.6 % (36-46); Hemoglobin 13.2 g/dL (12.0-16.0); Lymphocytes Absolute Auto 2700 /uL (1100-4500); Mean Corpuscular HGB Conc 34.2 % (30-36); Mean Corpuscular Hemoglobin 35.6 PG (26-34); Mean Corpuscular Volume 103.9 fL (80-100); Platelet Count 268 X10^3/uL (150-400)
[2024-11-02 15:48] LABS: Alanine Aminotransferase 90 IU/L (<35); Albumin 4.2 g/dL (3.5-5.0); Albumin Globulin Ratio 1.4 (1.0-2.8); Alkaline Phosphatase 123 U/L (38-126); Blood Urea Nitrogen 7 mg/dL (7-17); Calcium 9.4 mg/dL (8.4-10.2); Carbon Dioxide 26 mmol/L (22-32); Chloride 105 mmol/L (98-107); Estimated Glomerular Filt Rate > 60 mL/min (>60); Globulin 3.0 g/dL (1.7-4.1); Glucose 118 mg/dL (70-99); HEMOLYSIS 44 (0-50); Lipase 556 U/L (23-300); Potassium 3.5 mmol/L (3.4-5.1); Sodium 141 mmol/L (137-145); Total Protein 7.2 g/dL (6.3-8.2)
== END 2024-11-02 17:48 | disposition left against medical advice (07) ==
PROVIDERS: Emergency Provider Family Medicine; PCP Family Medicine
DX: R31.9 Hematuria, unspecified (principal); Z53.21 Procedure and treatment not carried out due to patient leaving prior to being seen by health care provider
CPT/HCPCS: 80053; 81003; 81025; 83690; 85025; 99282

== ENCOUNTER → 2024-11-27 06:54 | Outpatient (CLI) | payer OTHER, SELFPAY ==
--- NOTE | 2024-11-27 06:56 | DI.CT.S_ITS ---
PROCEDURE: CT IVP A/P W/WO INDICATIONS: Acute pain, right side pain and pelvic pain TECHNIQUE: Optional 5 mm thick noncontrast images acquired from the diaphragm to the symphysis pubis. After the administration of intravenous contrast, 5 mm thick images acquired from the diaphragm to the symphysis pubis after a 10-minute delay. 2 mm thick coronal and sagittal reformats were then performed of the kidneys and ureters. For radiation dose reduction, the following was used: automated exposure control, adjustment of mA and/or kV according to patient size. COMPARISON: None. FINDINGS: Image quality: Diagnostic. Kidneys and Ureters: Both kidneys are normal size. Symmetric parenchymal enhancement without suspicious complex cyst or mass. There is punctate and slight linear calcification at the papilla tips in the lower pole left kidney. There are a few nonobstructing formed calcifications in the mid and lower pole right renal calices. The largest is a linear calcification in the midpole right kidney measuring 7 mm. Hounsfield units are approximately 500. Appropriate filling calices postcontrast without suspicious filling defect. No hydroureter. There is a short segment possible urothelial thickening, possible punctate calcification, and luminal narrowing in the mid right ureter for a length of 2 cm. Opacified portion of the distal right ureter is normal. Left ureter is normal. Bladder: The urinary bladder is decompressed. Postcontrast, partially filled bladder demonstrates normal wall thickness and no definite filling defects. No bladder calcifications. OTHER: Lower chest: Unremarkable. Liver: Mild hepatomegaly with significant hepatic steatosis and sparing in the gallbladder fossa. No solid mass. Gallbladder: No wall thickening or calcified stones. Biliary ducts: No biliary dilation. Pancreas: No ductal dilation. Spleen: Normal size. Scattered punctate calcifications consistent granulomas. Adrenal Glands: No adrenal nodules. Stomach and Bowel: Stomach and small bowel loops are normal caliber. Normal appendix. Occasional colonic diverticulosis. Peritoneum: No abnormal intraperitoneal fluid. No free air. Ventral Wall: No hernia. Abdominal Nodes: No retroperitoneal or mesenteric adenopathy by size criteria. Vessels: The abdominal aorta, IVC, and portal vein are of normal caliber. PELVIS: Pelvic Organs: Uterus and ovaries are normal. Pelvic Nodes: No enlarged lymph nodes. Miscellaneous: No inguinal hernias are seen. Bones: No aggressive osseous abnormality. IMPRESSION: Residual, nonobstructing right nephrolithiasis. Resolution of prior right hydronephrosis. New focal urothelial thickening in the right mid ureter, most likely edema due to recent or ongoing stone passage and instrumentation. Hepatomegaly and marked hepatic steatosis, chronic. Dictated by: Vero Browning M.D. on 11/27/2024 at 10:10 Approved by: Vero Browning M.D. on 11/27/2024 at 10:22
--- NOTE | 2024-11-27 06:56 | DI.US.S_ITS ---
PROCEDURE: US ABDOMEN LIMITED INDICATIONS: RUQ PAIN, ABN LFTS TECHNIQUE: Real-time scanning was performed of the abdominal and retroperitoneal organs, with image documentation. COMPARISON: None. FINDINGS: Liver: The liver demonstrates diffusely increased echotexture without focal abnormalities consistent with chronic hepatocellular disease/hepatic steatosis. Gallbladder: Gallbladder is normal in sonographic appearance without gallstones, gallbladder wall thickening, pericholecystic fluid, or abnormal sonographic Hernandez's. Biliary ducts: Intrahepatic bile ducts are non-dilated. Extrahepatic bile duct caliber measures 7 mm. Normal is 6-7 mm or less in diameter, or 10 mm or less post-cholecystectomy. Pancreas: Visualized portions of the pancreas are sonographically normal. Kidneys: Limited evaluation of the right kidney demonstrates no hydronephrosis. Miscellaneous: No free abdominal fluid. IMPRESSION: The liver demonstrates diffusely increased echotexture without focal abnormalities consistent with chronic hepatocellular disease/hepatic steatosis. Findings may correlate with abnormal liver function tests. Dictated by: Elias Cabrera M.D. on 11/27/2024 at 12:50 Approved by: Elias Cabrera M.D. on 11/27/2024 at 12:51
== END ==
PROVIDERS: PCP Family Medicine; Referring Provider Family Medicine; Visit Provider Family Medicine
DX: K76.0 Fatty (change of) liver, not elsewhere classified (principal); K57.30 Diverticulosis of large intestine without perforation or abscess without bleeding; N20.0 Calculus of kidney; R74.8 Abnormal levels of other serum enzymes; R10.31 Right lower quadrant pain
CPT/HCPCS: 74178; 76705; Q9967

== ENCOUNTER 2024-12-25 18:00 | Emergency (ER) | payer OTHER, SELFPAY ==
--- NOTE | 2024-12-25 18:13 | DI.CT.S_ITS ---
PROCEDURE: CT ABDOMEN PELVIS WO CON INDICATIONS: R flank/Rabd pain, hx stent removed, stones. TECHNIQUE: Axial sections were acquired from the lung bases to the pubic symphysis. Coronal and sagittal reformats were performed. For radiation dose reduction, the following was used: automated exposure control, adjustment of mA and/or kV according to patient size. COMPARISON: [facility], CT, CT KIDNEY URETER BLADDER (KUB), 12/04/2024, 14:30. FINDINGS: Image quality: Diagnostic. Lower Chest: No significant findings. URINARY: Right Kidney: Small punctate nonobstructing right renal stones measuring up to 3 mm. No hydronephrosis or perinephric stranding. Right Ureter: No hydroureter or ureteral stone. No periureteral stranding. Left Kidney: Faint, small punctate nonobstructing left renal stones measuring approximately 2 mm. No hydronephrosis or perinephric stranding. Left Ureter: No hydroureter or ureteral stones. No periureteral stranding. Bladder: Normal wall thickness. No stones. ABDOMEN: Liver: No contour-deforming solid mass. Moderate diffuse hepatic steatosis. Gallbladder: No radiopaque gallstones or wall thickening. Biliary ducts: No biliary dilation. Pancreas: No ductal dilation. Spleen: Size is within normal limits. Adrenal Glands: No adrenal nodules. Stomach and Bowel: Normal colonic caliber, without significant wall thickening. No evidence for small bowel obstruction or associated inflammatory changes. The appendix is not definitively visualized. However, no secondary findings of acute inflammation are noted in the right lower quadrant. Peritoneum: No abnormal intraperitoneal fluid. No free air. Ventral Wall: There is a fat-containing umbilical hernia without acute inflammation. Abdominal Nodes: No enlarged retroperitoneal or mesenteric lymph nodes. Vessels: Aorta and inferior vena cava are normal in size. PELVIS: Pelvic Organs: Unremarkable. Pelvic Nodes: Unremarkable. Miscellaneous: No inguinal hernias are seen. Bones: Unremarkable. Visualized osseous structures appear intact without acute fracture or focal destructive lesion. No acute compression fractures of the imaged spine. IMPRESSION: Small, punctate bilateral nonobstructing stones measuring up to 3 mm on the right and 2 mm on the left. No hydronephrosis or hydroureter. No perinephric or periureteral stranding. Moderate diffuse hepatic steatosis. Other chronic/non-acute findings as above. Dictated by: Elias Cabrera M.D. on 12/25/2024 at 19:37 Approved by: Elias Cabrera M.D. on 12/25/2024 at 19:43
--- NOTE | 2024-12-25 18:14 | ED.ABDPAIN ---
HPI - Abdominal Pain General Chief Complaint: Abdominal Pain Stated Complaint: Fit for Retirement Time Seen by Provider: 12/25/24 18:08 Source: patient, RN notes reviewed, old records reviewed and police Mode of arrival: other (Law enforcement) Limitations: no limitations History of Present Illness HPI narrative: 39-year-old female presents with complaint of right flank and right-sided abdominal pain that has been going intermittently since October. Patient states she developed kidney stone was not draining properly has a ureteral stent placed by Urology in [place]. States she removed it on October 27 herself which he has been instructed to do by pulling on a string. She states since then she has had pain on and off. 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 Patient states she has not had any fevers. She has had some nausea she states she has had intermittent vomiting. States she has had dysuria urgency and frequency. States she has had some mild diarrhea but no black or bloody stools. Patient states she is scheduled to see Urology locally here at our facility soon. Patient states she is on some form of Valium, clonidine for blood pressure and 1 other medication. Notes allergies to penicillins and derivatives, hydrocodone and Ambien. Does use tobacco, states she had stopped alcohol but had some today. denies recreational drugs. Patient presents with law enforcement for fit for longterm. Related Data Home Medications ?Medication ?Instructions ?Recorded ?Confirmed Multivitamins - 1 tab PO Q DAY ##0 02/27/10 02/04/22 (-S) Previous Rx's ?Medication ?Instructions ?Recorded azithromycin 250 mg tablet See Rx Instructions PO .COMPLEX 04/08/20 Sinus infection/Cillin allergic #6 tabs ofloxacin 0.3 % ear drops 10 drp otic (ear) BID #10 mL 10/17/20 clarithromycin 500 mg tablet 500 mg PO Q12H #20 tabs 11/12/20 lorazepam 1 mg tablet 1 mg PO DAILY PRN alcohol 10/11/21 withdrawal #14 tabs pantoprazole 40 mg tablet,delayed 40 mg PO QAM GI ulcer #90 tabs 10/11/21 release (Protonix) lidocaine 5 % topical patch 1 patch topical DAILY #15 ea 01/19/22 (Lidoderm) methocarbamol 500 mg tablet 500 mg PO BEDTIME PRN muscle spasm 01/19/22 #20 tabs methocarbamol 750 mg tablet 750 mg PO TID PRN pain/spasms #20 01/21/22 tabs oxycodone-acetaminophen 5 mg-325 1 tab PO Q8H PRN pain #10 tabs 01/21/22 mg tablet (Percocet) diazepam 5 mg tablet 5 mg PO BID PRN muscle spasm #14 12/04/24 tabs Allergies Allergy/AdvReac Type Severity Reaction Status Date / Time Penicillins Allergy Severe Anaphylaxis Verified 12/25/24 18:20 latex Allergy Intermediate SWELLING Verified 12/25/24 18:20 hydrocodone Allergy Unknown Verified 12/25/24 18:20 zolpidem (From Ambien) Allergy Verified 12/25/24 18:20 Review of Systems Review of Systems ROS Unobtainable: All systems reviewed & are unremarkable except as noted in HPI and below Patient History Medical History Muscle spasm Costochondritis Bilateral otitis media Right otitis externa Thoracic spinal stenosis Bone spur Social History household members: spouse and children Smoking Status: Current every day smoker alcohol intake: current tobacco type: e-cigarettes alcohol intake frequency: 3 or more drinks per day Alcohol type: other Exam Narrative Exam Narrative: GENERAL: Alert and oriented x three, female in moderate distress HEENT: Head normocephalic, atraumatic, EOMI, pupils reactive, face symmetric, moist mucous membranes NECK: Supple, full range of motion CARDIOVASCULAR: Regular rate and rhythm without murmurs, rubs or gallops. RESPIRATORY: Breath sounds equal bilaterally, no wheezes rales or rhonchi. ABDOMEN: Soft, nontender. Normoactive bowel sounds all 4 quadrants. No guarding or rebound, rigidity, no mass : No CVA tenderness bilaterally EXTREMITIES: Normal range of motion, no clubbing or edema. Neurovascularly intact NEUROLOGICAL: Cranial nerves II through XII grossly intact. Moving all extremities SKIN: Warm, dry, no petechiae, no rashes or lesions. Initial Vital Signs Initial Vital Signs: Vital Signs Temperature 98.7 F 12/25/24 18:19 Pulse Rate 129 H 12/25/24 18:19 Respiratory Rate 22 12/25/24 18:19 Blood Pressure 117/89 12/25/24 18:19 Pulse Oximetry 95 12/25/24 18:19 Oxygen Delivery Method Room Air 12/25/24 18:19 Course Orders Ordered: Discontinued Medications Acetaminophen (Acetaminophen 325 Mg Tablet) 975 mg PO NOW ONE Stop: 12/25/24 20:10 Last Admin: 12/25/24 20:20 Dose: 975 mg Documented By: SHERI Sodium Chloride (Normal Saline 0.9%) 1,000 mls @ 1,000 mls/hr IV BOLUS ONE Stop: 12/25/24 19:12 Last Infusion: 12/25/24 19:58 Dose: Infused Documented By: Admin: 12/25/24 18:50 Dose: 1,000 mls/hr Documented By: SHERI Ketorolac Tromethamine (Ketorolac 30 Mg/Ml Vial) 15 mg IV NOW ONE Stop: 12/25/24 18:14 Last Admin: 12/25/24 18:51 Dose: 15 mg Documented By: SHERI Ondansetron HCl (Ondansetron 4 Mg/2 Ml Inj) 4 mg IV NOW ONE Stop: 12/25/24 18:14 Last Admin: 12/25/24 18:51 Dose: 4 mg Documented By: SHERI Vital Signs Vital signs: Vital Signs - 8 hr 12/25/24 18:19 Temperature 98.7 F Pulse Rate 129 H Respiratory Rate 22 Blood Pressure 117/89 Pulse Oximetry 95 Oxygen Delivery Method Room Air MDM - Abdominal Pain Lab Data 12/25/24 18:34 12/25/24 18:34 Labs: Lab Results 12/25/24 12/25/24 Range/Units 18:06 18:34 WBC 5.7 (4.5-11.0) X10^3/uL RBC 3.85 L (4.0-5.2) X10^6/uL Hgb 14.7 (12.0-16.0) g/dL Hct 42.3 (36-46) % MCV 109.9 H (80-100) fL MCH 38.1 H (26-34) PG MCHC 34.7 (30-36) % RDW 14.0 (11.6-14.8) % Plt Count 97 L (150-400) X10^3/uL Neut % (Auto) 50.7 (50-75) % Lymph % (Auto) 38.3 (25-40) % [place] % (Auto) 8.0 (3-14) % Eos % (Auto) 1.5 L (2-4) % Baso % (Auto) 1.5 (0-2) % Neut # (Auto) 2900 (7675-7612) /uL Lymph # (Auto) 2200 (1109-8814) /uL [place] # (Auto) 500 (0-900) /uL Eos # (Auto) 100 (0-450) /uL Baso # (Auto) 100 (0-100) /uL Sodium 141 (137-145) mmol/L Potassium 3.2 L (3.4-5.1) mmol/L Chloride 104 (98-107) mmol/L Carbon Dioxide 29 (22-32) mmol/L BUN 9 (7-17) mg/dL Creatinine 0.56 (0.52-1.04) mg/dL Estimated GFR > 60 (>60) mL/min BUN/Creatinine Ratio 16.1 (6-22) Glucose 110 H (70-99) mg/dL Calcium 9.8 (8.4-10.2) mg/dL Total Bilirubin 0.3 (0.2-1.3) mg/dL AST 159 H (14-36) IU/L ALT 88 H (<35) IU/L Alkaline Phosphatase 112 (38-126) U/L Total Protein 7.1 (6.3-8.2) g/dL Albumin 4.2 (3.5-5.0) g/dL Globulin 2.9 (1.7-4.1) g/dL Albumin/Globulin Ratio 1.4 (1.0-2.8) Lipase 471 H (23-300) U/L Serum , Qual Negative (Negative) Point of care testing: Urine Dip Bedside Urine Glucose Negative Bedside Urine Bilirubin - Negative Bedside Urine Ketone - Negative Urine Specific [place] 1.010 Bedside Urine Occult Blood - Negative Bedside Urine pH 6 Bedside Urine Protein - Negative Bedside Urine Urobilinogen - Negative Bedside Urine Nitrite - Negative Bedside Urine Leukocytes - Negative Esterase MDM Narrative Medical decision making narrative: Labs show normal white count hemoglobin, platelets are 97 patient has had intermittent thrombocytopenia. Last month was 120. Chemistries show potassium of 3.2 otherwise appropriate creatinine 0.56 glucose is 110, AST ALT are 159 and 88 patient has been chronically elevated and higher in the past bilirubin is normal. Lipase is 471 consistent with priors as well. Point of care urine is negative. CT abdomen pelvis shows small punctate bilateral nonobstructing stones measuring up to 3 mm in the right and 2 mm on the left no hydro or hydroureter no perinephric or periureteral stranding. Moderate diffuse hepatic steatosis. Moderate diffuse hepatic steatosis. Appendix not definitively visualized however no secondary findings in the right lower quadrant, no evidence of bowel obstruction or associated inflammatory changes. Fat containing umbilical hernia without acute inflammation. Patient received fluids, Zofran and Toradol. Patient is feeling improved has a little bit of pain give an additional dose of Tylenol. Reviewed all of her findings. Discussed she has stones in the kidney but not in the ureter. She is aware of her other lab findings from the past with today. Plan for discharge. Patient has not no diagnosis requiring admission at this time. Discharge Plan Departure Patient Disposition: Home Clinical Impression: Acute right flank pain, Medical clearance for incarceration Instructions: DI for Flank Pain Activity Restrictions/Additional Instructions: You have 2 small stones in your kidneys but none in the ureter or they will cause pain. Incidentally it is noted you have some moderate diffuse hepatic steatosis and a small fat containing umbilical hernia without acute inflammation. Your labs show that your platelets are slightly low they have been like this intermittently in the past and should be followed by your physician. Please follow up as needed. You can take ibuprofen up to a 600 mg every 6 hours and/or acetaminophen up to a 1000 mg every 6 hours as needed for pain. Please return for fevers, new or worsening symptoms, persistent vomiting, lightheadedness passing out, inability difficulty with urination. Prescriptions: No Action azithromycin 250 mg tablet See Rx Instructions PO .COMPLEX Qty: 6 0RF Rx Instructions: take 500 mg today (day 1), then 250 mg for 4 days (days 2-5) PO ofloxacin 0.3 % drops 10 drp otic (ear) BID Qty: 10 2RF methocarbamol 750 mg tablet 750 mg PO TID PRN (Reason: pain/spasms) Qty: 20 0RF oxycodone-acetaminophen [Percocet] 5-325 mg tablet 1 tab PO Q8H PRN (Reason: pain) Qty: 10 0RF Multivitamins - (-S) 1 tab PO Q DAY Qty: 0 methocarbamol 500 mg tablet 500 mg PO BEDTIME PRN (Reason: muscle spasm) Qty: 20 0RF lidocaine [Lidoderm] 5 % adhesive patch,medicated 1 patch topical DAILY Qty: 15 0RF Rx Instructions: leave on most painful area for up to 12 hrs clarithromycin 500 mg tablet 500 mg PO Q12H Qty: 20 0RF lorazepam 1 mg tablet 1 mg PO DAILY PRN (Reason: alcohol withdrawal) Qty: 14 0RF Rx Instructions: Please take half to 1 mg as needed for symptoms of alcohol withdrawal or extreme anxiety. pantoprazole [Protonix] 40 mg tablet,delayed release (DR/EC) 40 mg PO QAM Qty: 90 0RF Rx Instructions: Take each morning before any food or water. diazepam 5 mg tablet 5 mg PO BID PRN (Reason: muscle spasm) Qty: 14 0RF Referrals: Carmina Colin MD [Primary Care Provider, Family Practice] Stand Alone Forms: Patient Portal/API
[2024-12-25 18:19] VITALS: BP 117/89; PULSE 129; RESP 22; TEMP 37.1; O2SAT 95
[2024-12-25 18:45] LABS: Add Manual Diff / Slide Review NO; Hematocrit 42.3 % (36-46); Hemoglobin 14.7 g/dL (12.0-16.0); Lymphocytes Absolute Auto 2200 /uL (1100-4500); Mean Corpuscular HGB Conc 34.7 % (30-36); Mean Corpuscular Hemoglobin 38.1 PG (26-34); Mean Corpuscular Volume 109.9 fL (80-100); Platelet Count 97 X10^3/uL (150-400)
[2024-12-25] MEDS: SODIUM CHLORIDE 0.9% 1,000 ML 1000 ML IV (18:50)
[2024-12-25] MEDS: ONDANSETRON 4 MG/2 ML INJ IV (18:51)
[2024-12-25] MEDS: KETOROLAC 30 MG/ML VIAL 15 MG IV (18:51)
[2024-12-25 18:56] LABS: Alanine Aminotransferase 88 IU/L (<35); Albumin 4.2 g/dL (3.5-5.0); Albumin Globulin Ratio 1.4 (1.0-2.8); Alkaline Phosphatase 112 U/L (38-126); Blood Urea Nitrogen 9 mg/dL (7-17); Calcium 9.8 mg/dL (8.4-10.2); Carbon Dioxide 29 mmol/L (22-32); Chloride 104 mmol/L (98-107); Estimated Glomerular Filt Rate > 60 mL/min (>60); Globulin 2.9 g/dL (1.7-4.1); Glucose 110 mg/dL (70-99); HEMOLYSIS 19 (0-50); Lipase 471 U/L (23-300); Potassium 3.2 mmol/L (3.4-5.1); Sodium 141 mmol/L (137-145); Total Protein 7.1 g/dL (6.3-8.2)
[2024-12-25 19:49] LABS: Pregnancy Test Serum,Qual Negative (Negative)
[2024-12-25 20:06] VITALS: BP 107/71; PULSE 106; RESP 18; O2SAT 97
[2024-12-25] MEDS: ACETAMINOPHEN 325 MG TABLET 975 MG PO (20:20)
== END 2024-12-25 20:28 | disposition home or self-care (01) ==
PROVIDERS: Emergency Provider Emergency Medicine; PCP Family Medicine
DX: R10.9 Unspecified abdominal pain (principal); N20.0 Calculus of kidney; Z87.442 Personal history of urinary calculi; R11.2 Nausea with vomiting, unspecified; Z00.8 Encounter for other general examination
CPT/HCPCS: 36415; 74176; 80053; 81003; 83690; 84703; 85025; 96361; 96374; 96375; 99284; J1885; J2405